=== PATIENT | male | born 1950 | race Hispanic/Latino ===

== ENCOUNTER 2025-03-19 05:39 | Day surgery (SDC) | payer MEDICARE ==
[2025-03-18 12:09] LABS: BASOPHILS # (AUTO) 0.09 K/uL (0.00-0.20); BASOPHILS % (AUTO) 1.1 % (0.0-5.0); EOSINOPHILS # (AUTO) 0.78 K/uL (0.00-0.70); EOSINOPHILS % (AUTO) 9.7 % (0.0-8.0); IMMATURE GRANULOCYTE ABSOLUTE 0.03 K/uL (0-1); LYMPHOCYTES # (AUTO) 1.4 K/uL (1.0-4.8); LYMPHOCYTES % (AUTO) 17.8 % (21.0-51.0); MEAN CORPUSCULAR HEMOGLOBIN 31.1 pg (27.0-33.0); MEAN CORPUSCULAR HGB CONC 35.2 g/dL (32.0-36.0); MEAN CORPUSCULAR VOLUME 88.2 fL (79-99); MONOCYTES # (AUTO) 0.8 K/uL (0.1-1.0); MONOCYTES % (AUTO) 9.5 % (3.0-13.0); NEUTROPHILS % (AUTO) 61.5 % (40.0-77.0); PLATELET COUNT (AUTO) 143 K/uL (130-400); RED BLOOD CELL COUNT(AUTO) 4.99 MIL/uL (4.50-6.20)
[2025-03-18 12:19] LABS: CREATININE 0.9 mg/dL (0.5-1.3); POTASSIUM 4.7 mmol/L (3.5-5.1)
[2025-03-18 12:20] LABS: INR 1.05 (0.85-1.15); PROTHROMBIN TIME 11.1 SEC (9.6-11.6)
[2025-03-18 12:22] LABS: PARTIAL THROMBOPLASTIN TIME 27.5 SEC (26.3-35.5)
[2025-03-18 12:30] VITALS: BP 143/78; PULSE 56; RESP 18; TEMP 97.7
--- NOTE | 2025-03-18 12:35 | EKG ---
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
[2025-03-18 12:54] LABS: B-TYPE NATRIURETIC PEPTIDE 45 pg/mL (0-100)
[2025-03-19] VITALS (10 sets, daily range): BP systolic 125–153; BP diastolic 72–82; PULSE 54–66; RESP 8–15; TEMP 97.9–98
[~2025-03-19] VITALS: Ht 170.2 cm; Wt 94.5 kg
[~2025-03-19 05:39] MED LIST: AMLO-257 PO; ASPI-1197 PO; ATOR40TA71 PO; CARB200T6 PO
[2025-03-19] MEDS: 0.9%NACL 1000ML 1,000 ML IV SCH (06:38)
[2025-03-19] MEDS ORDERED: HEParin 10,000 UNIT/10ML (1,000 UNIT/ML) VIAL ONE (07:11)
[2025-03-19] MEDS ORDERED: LIDOCAINE HCL 400MG/20ML VIAL ONE (07:11)
[2025-03-19] MEDS ORDERED: HEParin-NS 1,000 UNIT/500 ML 1,000 ML IV ONE (07:11)
[2025-03-19] MEDS ORDERED: IOHEXOL 350 MG/ML 100ML INFUS..BTL IV ONE (07:11)
[2025-03-19] MEDS ORDERED: NITROGLYCERIN 50MG VIAL ONE (07:12)
[2025-03-19] MEDS ORDERED: FENTanyl CITRate PF 50 MCG/1 ML 2ML VIAL ONE (07:38)
[2025-03-19] MEDS ORDERED: MIDAZOLAM HCL 1 MG/ML 2ML VIAL ONE (07:39)
--- NOTE | 2025-03-19 09:23 | PRN ---
PROCEDURE NOTE Indications: Chest pain Abnormal Lexiscan stress test done on 01/30/2025 (moderate size, moderate intensity, fully reversible perfusion defects seen in the mid/apical inferior and inferolateral wall) Abnormal calcium score of 720 (lad 555, LCX 65, RCA 29) done on 11/27/2023 Normal left ventricle systolic function (LVEF 55% by echocardiogram done on 09/14/2022) Procedures: Coronary angiogram, femoral angiogram Introduction: After informed written consent was obtained, the patient was brought to the Catheterization Lab in the usual fasting state. Following sterile prep and drape, a time out was performed, then moderate sedation was administered, 1mg of Versed and 50mcg of Fentanyl, then 1% Lidocaine was infiltrated into the right femoral groin. Using a Modified Seldinger technique, a 6Fr Sheath was inserted into the right common femoral artery. While under fluoroscopic guidance, diagnostic coronary catheters were advanced over a wire into the central circulation where they were aspirated, flushed and placed to pressure monitoring, once the wire was removed. Coronary Angio: The left and right coronary arteries were engaged with appropriate catheters and angiography was performed under continuous pressure monitoring. Cardiac Findings: Right dominant system LM: Large caliber vessel with mild luminal irregularities. The vessel bifurcates into the LAD. LAD: Large caliber vessel with diffuse 20 30% stenosis in the mid LAD. The rest of the vessel has mild luminal irregularities. EARL 3 blood flow. Diagonal 1: Small caliber vessel mild luminal irregularities. 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 Medium caliber vessel with 30% stenosis in the ostial LCX and 20% stenosis in the mid LCX OM1: Small caliber vessel with mild luminal irregularities RCA: Large caliber vessel with 20% stenosis in the mid RCA. The rest of the vessel has mild luminal irregularities. RPDA: Medium caliber vessel mild luminal irregularities. RPLV: Medium caliber vessel with mild luminal irregularities Medications given: Versed 1mg, Fentanyl 50mcg Coronary Intervention: None Complications: None Conscious Sedation Monitoring: Under my direct order and supervision, medication for moderate conscious sedation was administered by the nursing staff and the patients level of consciousness and physiological status was monitored by an independent trained nurse. Closure of Access Site: After the case completed the sheath was pulled and a 6Fr Angioseal was deployed in the right common femoral artery without complication. Conclusion: 1. Nonobstructive CAD 2. 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 Abnormal Lexiscan stress test done on 01/30/2025 (moderate size, moderate intensity, fully reversible perfusion defects seen in the mid/apical inferior and inferolateral wall) 4. Abnormal calcium score of 720 (lad 555, LCX 65, RCA 29) done on 11/27/2023 5. Normal left ventricle systolic function (LVEF 55% by echocardiogram done on 09/14/2022) Recommendation: 1. Continue goal-directed medical therapy. 2. Groin precautions 3. 4 hours of bedrest. 4. We will start NS at 100 mL/hour x3 hours. 5. We will order a coronary CTA to further evaluate the anomalous LCX and determine its course around the aorta. 6. Please have the patient follow up with Dr. Reynolds in 1-2 weeks. CHRISTI REYNOLDS MD March 19, 2025 09:23
[2025-03-19] MEDS ORDERED: 0.9%NACL 1000ML 1,000 ML IV SCH (09:30)
[2025-03-19] MEDS ORDERED: DEXTROSE 50%-WATER 50 ML DISP.SYRIN IV PRN (09:30)
[2025-03-19] MEDS ORDERED: GLUCAGON 1MG KIT 1 MG ML IM PRN (09:30)
--- NOTE | 2025-03-19 10:00 | NUR ---
urinary: voided 250cc yellow color urine per urinal without difficulty.
--- NOTE | 2025-03-19 11:30 | NUR ---
urinary: voided 200cc yellow color urine per urinal without difficulty
== END 2025-03-19 12:43 | disposition home or self-care (01) ==
LOC: DAH 05:39
PROVIDERS: ATTEND Internal Medicine Cardiovascular Disease
DX: R94.39 Abnormal result of other cardiovascular function study (principal); I25.10 Atherosclerotic heart disease of native coronary artery without angina pectoris; I10 Essential (primary) hypertension; E78.5 Hyperlipidemia, unspecified; Z79.82 Long term (current) use of aspirin; Z79.899 Other long term (current) drug therapy; Z98.890 Other specified postprocedural states
CPT/HCPCS: 80048; 83880; 85025; 85610; 85730; 36415; 93005; 93454; A4223 ×3; Q9965 ×2; C1894 ×2; C1760; J3010; J3490 ×2; J7030; J2250; J1644; Q9967; A4215; A4222; A4221; A4663; A4216; A4606; 96360; 96361; 99156; 99157